=== PATIENT | male | born 1955 | race Caucasian/White ===

== ENCOUNTER 2023-11-11 05:05 | Day surgery (SDC) | payer OTHER ==
[~2023-11-11] VITALS: Ht 177.8 cm; Wt 70.9 kg
[2023-11-11 06:29] VITALS: O2SAT 99
[2023-11-11] MEDS ORDERED: ceFAZolin SODIUM 2 GM in D5W 100 ML IV ONE (07:00)
[2023-11-11] MEDS ORDERED: MIDAZOLAM HCL 2 MG/2 ML VIAL (VERSED) ONE (07:33)
[2023-11-11] MEDS ORDERED: ACETAMINOPHEN I.V. 1000 MG 100 ML IV ONE (07:33)
[2023-11-11] MEDS ORDERED: fentaNYL CITRATE/PF 100 MCG/2 ML AMP ONE (07:33)
[2023-11-11] MEDS ORDERED: BUPIVACAINE /PF 0.5% 30 ML VIAL ONE (07:36)
[2023-11-11] MEDS ORDERED: ePHEDrine sulfate 50 MG/ML VIAL ONE (07:36)
[2023-11-11] MEDS ORDERED: NS IRRIG SOLN 1000 ML IR ONE (07:36)
[2023-11-11] MEDS ORDERED: LIDOCAINE/EPI 1% 1:100000 20 ML VIAL ONE (07:36)
[2023-11-11] MEDS ORDERED: KETOROLAC TROMETHAMINE 30 MG VIAL ONE (07:36)
[2023-11-11] MEDS ORDERED: NEOSTIGMINE METHYLSULFATE 1 MG/ML, 10 ML VIAL ONE (07:36)
[2023-11-11] MEDS ORDERED: GLYCOPYRROLATE 0.2 MG/ML VIAL ONE (07:36)
[2023-11-11] MEDS ORDERED: ONDANSETRON HCL 4 MG/2 ML VIAL ONE (07:36)
[2023-11-11] MEDS ORDERED: SEVOFLURANE 15 MIN GAS INH ONE (07:36)
[2023-11-11] MEDS ORDERED: PROPOFOL 200MG/ 20ML VIAL (DIPRIVAN) IV ONE (07:36)
[2023-11-11] MEDS ORDERED: LR 1,000 ML IV.SOLN IV ONE (07:36)
[2023-11-11] MEDS ORDERED: ROCURONIUM BROMIDE 10 MG/ML (ZEMURON) ONE (07:36)
[2023-11-11] MEDS ORDERED: HYDROmorphone 1 MG/ML INJ. CARTRIDGE IVP PRN (08:00)
[2023-11-11] MEDS ORDERED: ONDANSETRON HCL 4 MG/2 ML VIAL IVP PRN (08:00)
[2023-11-11] MEDS ORDERED: fentaNYL CITRATE/PF 100 MCG/2 ML AMP IVP PRN ×2 (08:00)
[2023-11-11 11:54] VITALS: BP_SYST 120; PULSE 56; RESP 18
== END 2023-11-11 12:44 | disposition home or self-care (01) ==
LOC: SMU 05:05 → SDS 05:05
PROVIDERS: ATTEND Orthopaedic Surgery Sports Medicine
DX: S42.021A Displaced fracture of shaft of right clavicle, initial encounter for closed fracture (principal); S42.111A Displaced fracture of body of scapula, right shoulder, initial encounter for closed fracture; S22.41XA Multiple fractures of ribs, right side, initial encounter for closed fracture; V89.2XXA Person injured in unspecified motor-vehicle accident, traffic, initial encounter; Y93.89 Activity, other specified; Y92.89 Other specified places as the place of occurrence of the external cause; Y99.8 Other external cause status
CPT/HCPCS: 87081; 23515; 76000; J3490 ×2; J1885; J3465; J2405; J2704; J3010; J7060; J7120; C1713 ×6; J0131; J2710